=== PATIENT | male | born 1975 | race Caucasian/White ===

== ENCOUNTER 2019-01-11 15:11 | Emergency (ER) | payer BC ==
[~2019-01-11] VITALS: Wt 124.0 kg
[~2019-01-11 15:11] MED LIST: GABA-528 PO; HYDR-762 PO
[2019-01-11 15:13] VITALS: BP 143/90; PULSE 78; RESP 18
[2019-01-11] MEDS ORDERED: morphine 4 MG/ML VIAL IV STA (16:23)
[2019-01-11] MEDS ORDERED: ONDANSETRON INJ 8 MG in DEXTROSE 5% 50 ML IV STA (16:23)
[2019-01-11] MEDS ORDERED: KETOROLAC 30 MG INJ IV STA (16:23)
[2019-01-11] MEDS ORDERED: SOD CHLORIDE 0.9% 500 ML IV STA (16:23)
--- NOTE | 2019-01-11 16:41 | ERD ---
ER Documentation Chief Complaint Chief Complaint CHRONIC BACK PAIN HPI This is a 43-year-old male with a history of chronic back pain who presents to ED with flare up of back pain that started yesterday while doing laundry. Patient has a history of having a surgery in 2016 at [facility] for a fusion of L5-S1, performed on 03-30-16 by Rodolfo. Patient's chronic back pain is due to a work injury that occurred in 2009. Patient states that post surgery in 2016 he did not experience much back pain until yesterday when he was doing laundry and he felt a pop in his lower back and started to experience sudden severe back pain. Denies tingling, numbness, lack of sensation, bowel/bladder incontinence, saddle paresthesias, fever, chills history of IV drug abuse. Has tried using [place] 10 at home as well as muscle relaxers but is not seeing relief. ROS All systems reviewed and are negative except as per history of present illness. Medications Home Meds Active Scripts Naproxen* (Naprosyn*) 500 Mg Tablet, 500 MG PO BID PRN for PAIN AND/OR INFLAMMATION, #30 TAB Prov:ROSA MARIA STORY PA-C 01/11/19 Cyclobenzaprine Hcl* (Cyclobenzaprine Hcl*) 10 Mg Tablet, 10 MG PO TID, #15 TAB Prov:ROSA MARIA STORY PA-C 01/11/19 Hydrocodone/Acetaminophen ([place] 5-325 Tablet) 1 Each Tablet, 1 TAB PO Q6H PRN for PAIN, #7 TAB Prov:ROSA MARIA STORY PA-C 01/11/19 Reported Medications Gabapentin* (Gabapentin*) 800 Mg Tablet, 800 MG PO TID, #90 TAB 03/30/16 Hydrocodone Bit-Acetaminophen* ([place]*) 10-325 Mg Tablet, 1 TAB PO Q4H PRN for PAIN, TAB 03/30/16 Allergies Allergies: Coded Allergies: No Known Allergy (Unverified , 03/30/16) PMhx/Soc History of Surgery: Yes (R knee OPA, R wrist sx, L-laminectomy in 2013) Anesthesia Reaction: No Hx Neurological Disorder: No Hx Respiratory Disorders: No Hx Cardiac Disorders: No Hx Psychiatric Problems: No Hx Miscellaneous Medical Probl: Yes (opiate dependency) Hx Alcohol Use: Yes (OCC) Hx Substance Use: Yes (OPIATE DEPENDENCY) Hx Tobacco Use: No FmHx Family History: No diabetes Physical Exam Vitals Vital Signs Date Temp Pulse Resp B/P (MAP) Pulse Ox O2 O2 Flow FiO2 Time Delivery Rate 01/11/19 98.1 78 18 143/90 99 15:13 (107) Physical Exam Physical Exam Vitals signs: Reviewed by me. General: Well developed, well nourished, in no acute distress. Patient is awake and alert. Head: Normocephalic, atraumatic. Eyes: Normal conjunctiva, Pupils PERRLA, EOM intact grossly ENT: Pharynx is clear, Moist mucous membranes, external ears, nose and mouth normal Neck: Supple, no masses, lymphadenopathy or JVD Respiratory: Clear to auscultation bilaterally with no wheezing, rhonchi, rales, no distress Cardiovascular: RRR, no murmurs, rubs, or gallops MSK: No edema, no unilateral swelling, 5/5 strength Back: There is lumbar midline tenderness at roughly L5, moderate tenderness palpation along the paravertebral muscles in the left and right lumbar spine around L5, decreased range of motion with flexion, extension, no decreased range of motion with lateral rotation Neurologic: Alert and oriented, moving all extremities, normal speech, no focal weakness, no cerebellar signs. Normal mentation Skin: warm and dry, No rash Psych: Normal mood Results 24 hrs Current Medications Medications Dose Sig/Chris Start Time Status Last (Trade) Ordered Route PRN Stop Time Admin Dose Reason Admin Sodium 500 ml @ Q1H STAT 01/11/19 DC 01/11/19 Chloride 500 mls/hr IV 16:23 16:42 01/11/19 17:22 Morphine 6 mg ONCE STAT 01/11/19 DC 01/11/19 Sulfate IV 16:23 16:42 (morphine) 01/11/19 16:26 Ondansetron 54 ml @ ONCE STAT 01/11/19 DC HCl 8 200 mls/hr IV 16:23 mg/Dextrose 01/11/19 16:42 Ketorolac 30 mg ONCE STAT 01/11/19 DC 01/11/19 Tromethamine IV 16:23 16:42 (Toradol) 01/11/19 16:26 Ondansetron 4 mg ONCE STAT 01/11/19 DC 01/11/19 HCl (Zofran IV 16:42 16:47 Inj) 01/11/19 16:43 Procedures/MDM EKG, MONITORS, & DIAGNOSTIC IMAGING: [place] [address] Radiology Main Line: [phone] DIAGNOSTIC IMAGING REPORT Patient: MARINO MILES : 1975 Age: 43 Sex: M MR #: [id number] DOS: 01/11/19 1623 Ordering MD: ROSA MARIA STORY PA-C Location: [facility] Room/Bed: PROCEDURE: CT Lumbar Spine without contrast. CLINICAL INDICATION: Lumbar spine pain. History of surgery. TECHNIQUE: The study was performed on a multislice multidetector CT scanner. Spiral axial 1 mm images were obtained through the lumbar spine without intravenous contrast. 1 or more of the following dose reduction techniques were utilized: Automated exposure control, adjustment of the mA and/or kV according to patient's size, iterative reconstruction technique. Coronal and sagittal reformations were obtained. The images were reviewed on a PACS workstation. DICOM images are available. RADIATION DOSE: CTDIvol: 38.21 mGy mGy DLP: 1108.88 mGy.cm mGy-cm COMPARISON: No prior studies are available for comparison. FINDINGS: There are postoperative changes from posterior fusion at L4 55 S1. There are paired pedicle screws in the L4, 5 and S1 vertebral bodies with associated paraspinal fusion rods. The pedicle screws are in satisfactory position. The robert dware is intact without evidence of fracture or loosening. There is solid osseous fusion at L4-5. There is partial osseous fusion at L5-S1 through the center of the disc spacer. No evidence of pseudoarthrosis. The remaining vertebral body heights are maintained. The remaining intervertebral discs demonstrate preserved height. There is no evidence of fracture or dislocation. The paraspinal soft tissues unremarkable. No significant paraspinal soft tissue swelling. L1-L2: The posterior margin of the disc is normal in appearance. No significant disc bulge or protrusion is evident. The central canal and neural foramina are adequately patent. L2-L3: The posterior margin of the disc is normal in appearance. No significant disc bulge or protrusion is evident. The central canal and neural foramina are adequately patent. L3-L4: There is a 2-3 mm annular disc bulge. The thecal sac measures 8.6 mm midline AP diameter. There is mild effacement of both lateral recesses. There is moderate bilateral neural foraminal narrowing. There is moderate bilateral facet hypertrophy with buckling ligamentum flavum. L4-L5: No residual disc material is seen. The thecal sac and lateral recesses are patent. There is mild narrowing of both neural foramina. L5-S1: No residual disc material is seen. The thecal sac and lateral recesses are patent. There is moderate and mild left neural foraminal narrowing. IMPRESSION: 1. No acute abnormality of the lumbar spine. No evidence of fracture. 2. Postoperative changes from posterior lumbar fusion at L4-5 and L5-S1 with intact surgical hardware. There is solid osseous fusion at L4-5 with early osseous fusion at L5-S1. No evidence of pseudoarthrosis. 3. Mild to moderate spondylosis/degenerative enthesopathy and L3-4 with mild narrowing of the lumbar thecal sac, moderate bilateral neural foraminal narrowing and mild effacement of both lateral recesses.. RPTAT: HGAS .Marcio Little MD, MD Date Time Electronically viewed and signed by .Marcio Little MD, MD on 01/11/2019 17:38 .S/ CC: ROSA MARIA STORY PA-C [id number] ER COURSE: The patient was given morphine, Zofran and Toradol for pain The medication was well tolerated and the patient reports improvement in symptoms. The patient was stable throughout ED course. I kept the patient and/or family informed of laboratory and diagnostic imaging results throughout the emergency room course. The patient was promptly evaluated and a treatment plan was devised based on H&P and other data. This plan was discussed with the patient who agreed and had no further questions or concerns prior to discharge. MEDICAL DECISION MAKING: This is a 43-year-old male with a history of chronic back pain who presents to the ED with flareup of back pain that occurred yesterday. Patient has a history of an L5-S1 fusion surgery for his chronic back pain that was performed in [address]. CT of lumbar spine shows no acute fractures or abnormalities. Patient was advised to follow-up with solution specialist as well as do physical therapy to rehabilitate low back. History and physical examination other data not consistent with processing including cauda equina syndrome, cord compression, infiltrative etiology, infectious etiology, epidural abscess, fracture, obstructive pyelonephritis, abdominal aortic aneurysm. Vitals are stable and patient can be managed outpatient with close follow-up. Advised patient to follow up with primary care in the next 48 hours. return to ED with any worsening symptoms DISPOSITION PLAN: We discussed follow up with the patient's primary care doctor within 24 to 48 hours. Patient counseled regarding my diagnostic impression and care plan. Pr ior to discharge all questions answered. Pt agrees with treatment plan and understands strict return precautions. Precautionary instructions provided including instructions to return to the ER if not improving or for any worsening or changing symptoms or concerns. SPECIALIST FOLLOW UP RECOMMENDED: orthopedic back specialist Patient has been advised to follow up with primary care in 1-2 days. Disclaimer: Inadvertent spelling and grammatical errors are likely due to EHR/dictation software use and do not reflect on the overall quality of patient care. Also, please note that the electronic time recorded on this note does not necessarily reflect the actual time of the patient encounter. Blood Pressure Assessment: Patient's blood pressure was elevated (>120/80) but appears stable without evidence of hypertension emergency or urgency. The patient was counseled about the risks of hypertension and urged to pursue outpatient monitoring and therapy within a week with their primary care physician. Departure Diagnosis: Primary Impression: Back pain Back pain location: low back pain Chronicity: chronic Back pain laterality: bilateral Sciatica presence: unspecified whether sciatica present Qualified Codes: M54.5 - Low back pain; G89.29 - Other chronic pain Condition: Stable Patient Instructions: Back Pain (Acute Or Chronic) Referrals: [facility] Additional Instructions: Follow-up with your orthopedic surgeon Patient advised to return to the ED immediately for new or worsening symptoms. Patient advised to follow up with primary care provider in the next 24-48 hours. Patient verbalized understanding and agrees with treatment plan and course of action. If patient has no primary care they may follow up with one of the community clinics listed on the following page or one of the options listed below [facility] [address] [place] [address] or [facility] [address] [place] [address] or [facility] [address] [place] [address] ROSA MARIA STORY PA-C Jan 11, 2019 16:41
[2019-01-11] MEDS ORDERED: ONDANSETRON 4 MG INJ IV STA (16:42)
[2019-01-11] MEDS ORDERED: NAPR-985 PO (17:34)
[2019-01-11] MEDS ORDERED: CYCL10TA7 PO (17:34)
[2019-01-11] MEDS ORDERED: HYDR-4011 PO (17:34)
== END 2019-01-11 17:52 | disposition home or self-care (01) ==
LOC: FTE 15:11
DX: M54.5 Low back pain (principal)
CPT/HCPCS: 72131; 96361; 96374; 96375; 99285; J1885; J2270; J2405; J7040